=== PATIENT | female | born 1995 | race Caucasian/White ===

== ENCOUNTER 2016-11-26 10:22 | Emergency (ER) | payer OTHER ==
[~2016-11-26] VITALS: Ht 162.6 cm; Wt 62.6 kg
[~2016-11-26 10:22] MED LIST: AMOX875T PO; AZIT250T PO; BENZ100C PO; BENZ200C39 PO; CYCL10TA2 PO; FLUT12AE IH; HYDR-971 PO; IBUP-1007 PO; IBUP-1060 PO; PRED20TA PO; PROAIR HFA8.5 GM IH; SULF1TAB24 PO; ZOLP10TA PO; ZOLP5TAB PO
[2016-11-26 10:30] VITALS: BP 105/67
--- NOTE | 2016-11-26 11:29 | RAD ---
2 view CXR: Clinical indications: Shortness of breath with cough. Chest pain and mid upper back pain for 3 days. Comparison: November 09, 2012.. Findings: No acute lung infiltrate or pleural effusion or pulmonary edema or lung mass or pneumothorax is seen. The heart size, pulmonary vasculature, mediastinum and both saeed are unremarkable. The osseous structures appear intact. Impression: No acute radiographic abnormality is seen.
--- NOTE | 2016-11-26 11:33 | PHYS DOC ---
Past Medical History Past Medical History: Other Additional Past Medical Histor: crohn's Past Surgical History: Cholecystectomy, Tonsillectomy, Other Additional Past Surgical Histo: small bowel resection Smoking: Less than 1pk/day Alcohol Use: None Drug Use: None Adult General Chief Complaint Chief Complaint: COUGH HPI HPI Patient is a 21 year old female with history of Crohn's disease who presents with productive cough and shortness of breath for 3 days. She also has nasal congestion and sore throat. She denies fever or ear pain. She is currently taking prednisone, 40 mg daily for the last week, for a Crohn's flare. She also receives Remicade injections, her last injection was 2 weeks ago. Her PCP is Esthela Herrera. Her GI doctor is Dr. Eric. Review of Systems Review of Systems Constitutional: Denies fever or chills. [] Eyes: Denies change in visual acuity, redness, or eye pain. [] HENT: Denies ear pain. Reports nasal congestion and sore throat. Respiratory: Reports productive cough and shortness of breath. Cardiovascular: Denies chest pain, palpitations or edema. [] Musculoskeletal: Denies joint pain. Reports mid thoracic back pain. Integument: Denies rash or skin lesions. [] Neurologic: Denies headache, focal weakness or sensory changes. [] All systems reviewed and negative unless otherwise stated in the HPI. Allergies Allergies Allergies Coded Allergies Type Severity Reaction Last Updated Verified adhesive Allergy Severe "Really bad rash" 10/02/13 Yes Uncoded Allergies Type Severity Reaction Last Updated Verified SEROTONIN Allergy Severe "Shaking whole body" 10/02/13 Physical Exam Physical Exam Constitutional: Well developed, well nourished, no acute distress, non-toxic appearance. [] HENT: Normocephalic, atraumatic, bilateral external ears normal, oropharynx moist, no oral exudates, nose normal. Bilateral TMs without erythema or bulging. There is no posterior pharyngeal erythema or tonsillar edema. Bilateral nasal turbinates are swollen and erythematous with purulent drainage. Eyes: PERRLA, EOMI, conjunctiva normal, no discharge. [] Neck: Normal range of motion, no tenderness, supple, no stridor. [] Cardiovascular: Heart rate regular rhythm, no murmur [] Lungs & Thorax: Bilateral breath sounds clear to auscultation without wheezes, rales, or rhonchi. Skin: Warm, dry, no erythema, no rash. [] Back: No midline tenderness, no CVA tenderness. [] Neurologic: Alert and oriented X 3, normal motor function, normal sensory function, no focal deficits noted. [] Psychologic: Affect normal, judgement normal, mood normal. [] Current Patient Data Vital Signs Vital Signs Date Time Temp Pulse Resp B/P Pulse Ox O2 Delivery O2 Flow Rate FiO2 11/26/16 10:30 97.6 74 18 100 Room Air 97.6 EKG EKG [] Radiology/Procedures Radiology/Procedures REASON: cough, soa PROCEDURE: CHEST PA & LATERAL 2 view CXR: Clinical indications: Shortness of breath with cough. Chest pain and mid upper back pain for 3 days. Comparison: November 09, 2012.. Findings: No acute lung infiltrate or pleural effusion or pulmonary edema or lung mass or pneumothorax is seen. The heart size, pulmonary vasculature, mediastinum and both saeed are unremarkable. The osseous structures appear intact. Impression: No acute radiographic abnormality is seen. Course & Med Decision Making Course & Med Decision Making Pertinent Labs and Imaging studies reviewed. (See chart for details) [] Dragon Disclaimer Dragon Disclaimer This electronic medical record was generated, in whole or in part, using a voice recognition dictation system. Departure Departure Impression: Primary Impression: Bronchitis Disposition: 01 HOME, SELF-CARE Condition: STABLE Referrals: ESTHELA HERRERA (PCP) Patient Instructions: Acute Bronchitis, [id number] Additional Instructions: Your chest x-ray does not show any signs of pneumonia today. Please take the prescribed medication as instructed. Please continue to take your home prednisone as directed. Please follow-up with your primary care provider if your symptoms continue. Return to emergency department if you have any new or concerning symptoms. Scripts Benzonatate 200 Mg Capsule1 Cap PO TID #30 CAP Prov:LORRAINE GILBERT 11/26/16 Albuterol Sulfate (Proair Hfa Inhaler)8.5 Gm Hfa.aer.ad1 Puff INH Q4HRS PRN SHORTNESS OF BREATH #1 INHALER Prov:LORRAINE GILBERT 11/26/16 LORRAINE GILBERT Nov 26, 2016 11:33
[2016-11-26] MEDS ORDERED: BENZ200C39 PO (11:46)
[2016-11-26] MEDS ORDERED: PROAIR HFA8.5 GM INH (11:46)
== END 2016-11-26 11:52 | disposition home or self-care (01) ==
LOC: ER 10:22
DX: J40 Bronchitis, not specified as acute or chronic (principal); F17.200 Nicotine dependence, unspecified, uncomplicated; Z90.49 Acquired absence of other specified parts of digestive tract; Z88.8 Allergy status to other drugs, medicaments and biological substances; Z91.048 Other nonmedicinal substance allergy status
CPT/HCPCS: 71020; 99284

== ENCOUNTER 2017-05-07 09:58 | Emergency (ER) | payer OTHER ==
[~2017-05-07] VITALS: Ht 162.6 cm; Wt 69.4 kg
[~2017-05-07 09:58] MED LIST changes: -BENZ200C39 PO; +BENZ200C47 PO; +PROAIR HFA8.5 GM INH
[2017-05-07] MEDS ORDERED: ACETAMINOPHEN 325 MG TABLET. PO ONE (10:30)
[2017-05-07 10:42] LABS: NEGATIVE OBC STREP NEG; POSITIVE OBC STREP POS
--- NOTE | 2017-05-07 10:44 | PHYS DOC ---
Past Medical History Past Medical History: Other Additional Past Medical Histor: crohn's Past Surgical History: Cholecystectomy, Tonsillectomy, Other Additional Past Surgical Histo: small bowel resection Alcohol Use: None Drug Use: None Adult General Chief Complaint Chief Complaint: SORE THROAT HPI HPI Patient is a 22 year old female who presents with sore throat since last night. Pain with swallowing and laying down. No known sick contacts, no fever , no runny nose, no cough. Pt did not take any pain meds. 22 weeks , denies complications. Review of Systems Review of Systems Constitutional: Denies fever or chills [] Eyes: Denies change in visual acuity, redness, or eye pain [] HENT: Denies nasal congestion Respiratory: Denies cough or shortness of breath [] Cardiovascular: denies chest pain GI: Denies abdominal pain, nausea, vomiting, bloody stools or diarrhea [] : Denies dysuria or hematuria [] Musculoskeletal: Denies back pain or joint pain [] Integument: Denies rash or skin lesions [] Neurologic: Denies headache, focal weakness or sensory changes [] Current Medications Current Medications Current Medications Medications (Trade) Dose Ordered Sig/Pierre Start Time Stop Time Status Last Admin Dose Admin Acetaminophen (Tylenol) 650 mg 1X ONCE 05/07/17 10:30 05/07/17 10:31 DC 05/07/17 10:22 650 MG Allergies Allergies Allergies Coded Allergies Type Severity Reaction Last Updated Verified adhesive Allergy Severe "Really bad rash" 10/02/13 Yes Uncoded Allergies Type Severity Reaction Last Updated Verified SEROTONIN Allergy Severe "Shaking whole body" 10/02/13 Physical Exam Physical Exam Constitutional: Well developed, well nourished, no acute distress, non-toxic appearance. [] HENT: Normocephalic, atraumatic, bilateral external ears normal, oropharynx moist, erythema of oralpharynx, absent tonsils, no signs of abscess, uvula rises midline Eyes: conjunctiva normal, no discharge. [] Neck: Normal range of motion, no tenderness, supple, no stridor. [] Cardiovascular:Heart rate regular rhythm, no murmur [] Lungs & Thorax: Bilateral breath sounds clear to auscultation [] Neurologic: Alert and oriented X 3, normal motor function, normal sensory function, no focal deficits noted. [] Psychologic: Affect normal, judgement normal, mood normal. [] Current Patient Data Vital Signs Vital Signs Date Time Temp Pulse Resp B/P (MAP) Pulse Ox O2 Delivery O2 Flow Rate FiO2 05/07/17 10:06 97.6 97 18 98 Room Air 97.6 EKG EKG [] Radiology/Procedures Radiology/Procedures [] Course & Med Decision Making Course & Med Decision Making Pertinent Labs and Imaging studies reviewed. (See chart for details) Rapid strep test negative. Pt dc'd with recs to take Tylenol, drink fluids and f/u with OB doc. Return precautions given. Dragon Disclaimer Dragon Disclaimer This electronic medical record was generated, in whole or in part, using a voice recognition dictation system. Departure Departure Impression: Primary Impression: Pharyngitis Disposition: 01 HOME, SELF-CARE Admitting Physician: Other Condition: STABLE Referrals: ESTHELA HERRERA (PCP) Patient Instructions: Viral Pharyngitis CECY MARTINEZ MD May 07, 2017 10:44
== END 2017-05-07 10:50 | disposition home or self-care (01) ==
LOC: ER 09:58
DX: O99.512 Diseases of the respiratory system complicating pregnancy, second trimester (principal); J02.9 Acute pharyngitis, unspecified; Z88.8 Allergy status to other drugs, medicaments and biological substances; Z91.048 Other nonmedicinal substance allergy status; Z3A.22 22 weeks gestation of pregnancy; Z90.49 Acquired absence of other specified parts of digestive tract
CPT/HCPCS: 87070; 87880; 99283

== ENCOUNTER 2018-09-30 11:36 | Emergency (ER) | payer OTHER ==
[~2018-09-30] VITALS: Ht 162.6 cm; Wt 68.5 kg
[~2018-09-30 11:36] MED LIST changes: +HYDR-3164 PO; -HYDR-971 PO
[2018-09-30 11:59] VITALS: BP 109/68
[2018-09-30] MEDS ORDERED: AZIT1PAC9 PO (12:20)
[2018-09-30] MEDS ORDERED: PROAIR HFA8.5 GM INH (12:20)
--- NOTE | 2018-09-30 12:20 | PHYS DOC ---
Past Medical History Past Medical History: Asthma, Other Additional Past Medical Histor: crohns Past Surgical History: Cholecystectomy, Tonsillectomy, Other Additional Past Surgical Histo: bowel resection Alcohol Use: None Drug Use: None Adult General Chief Complaint Chief Complaint: FLU SYMPTOM HPI HPI Patient is a 23 year old [f__sex] who presents with [] Review of Systems Review of Systems Constitutional: Denies fever or chills [] Eyes: Denies change in visual acuity, redness, or eye pain [] HENT: Denies nasal congestion or sore throat [] Respiratory: Denies cough or shortness of breath [] Cardiovascular: No additional information not addressed in HPI [] GI: Denies abdominal pain, nausea, vomiting, bloody stools or diarrhea [] : Denies dysuria or hematuria [] Musculoskeletal: Denies back pain or joint pain [] Integument: Denies rash or skin lesions [] Neurologic: Denies headache, focal weakness or sensory changes [] Endocrine: Denies polyuria or polydipsia [] All other systems were reviewed and found to be within normal limits, except as documented in this note. Allergies Allergies Allergies Coded Allergies Type Severity Reaction Last Updated Verified adhesive Allergy Severe "Really bad rash" 10/02/13 Yes Uncoded Allergies Type Severity Reaction Last Updated Verified SEROTONIN Allergy Severe "Shaking whole body" 10/02/13 Physical Exam Physical Exam Constitutional: Well developed, well nourished, no acute distress, non-toxic appearance. [] HENT: Normocephalic, atraumatic, bilateral external ears normal, oropharynx moist, no oral exudates, nose normal. [] Eyes: PERRLA, EOMI, conjunctiva normal, no discharge. [] Neck: Normal range of motion, no tenderness, supple, no stridor. [] Cardiovascular:Heart rate regular rhythm, no murmur [] Lungs & Thorax: Bilateral breath sounds clear to auscultation [] Abdomen: Bowel sounds normal, soft, no tenderness, no masses, no pulsatile masses. [] Skin: Warm, dry, no erythema, no rash. [] Back: No tenderness, no CVA tenderness. [] Extremities: No tenderness, no cyanosis, no clubbing, ROM intact, no edema. [] Neurologic: Alert and oriented X 3, normal motor function, normal sensory function, no focal deficits noted. [] Psychologic: Affect normal, judgement normal, mood normal. [] Current Patient Data Vital Signs Vital Signs Date Time Temp Pulse Resp B/P (MAP) Pulse Ox O2 Delivery O2 Flow Rate FiO2 09/30/18 11:59 97.9 95 16 109/68 (82) 99 Room Air 97.9 EKG EKG [] Radiology/Procedures Radiology/Procedures [] Course & Med Decision Making Course & Med Decision Making Pertinent Labs and Imaging studies reviewed. (See chart for details) [] Dragon Disclaimer Dragon Disclaimer This electronic medical record was generated, in whole or in part, using a voice recognition dictation system. Departure Departure Impression: Primary Impression: Bronchitis Additional Impression: Upper respiratory infection Disposition: HOME, SELF-CARE Condition: STABLE Referrals: ESTHELA HERRERA (PCP) Patient Instructions: Acute Bronchitis, [id number], Upper Respiratory Infection, Adult, [id number] Additional Instructions: Fill prescription(s) and use as directed. Recommend that you use a Cool mist humidifier in room at bedtime. Tylenol or ibuprofen prn pain/fever. Increase clear fluids. Avoid triggers such as smoke, fragrance, dust, and pollen. May take OTC cough suppressants as needed. Follow-up with your primary care doctor symptoms persist, return to the ER if symptoms worsen. Scripts Albuterol Sulfate (PROAIR HFA INHALER) 8.5 Gm Hfa.aer.ad 2 PUFF INH PRN Q4-6HRS PRN for SHORTNESS OF BREATH for 30 Days, #1 INHALER 1 Refill Prov: SONY MORA TELEPHONIC RN 09/30/18 Azithromycin (AZITHROMYCIN PACKET) 1 Gm Packet 1 PACKET PO ONCE, #1 PACKET Prov: SONY MORA TELEPHONIC RN 09/30/18 Problem Qualifiers Additional Impression: Upper respiratory infection URI type: unspecified URI Qualified Codes: J06.9 - Acute upper respiratory infection, unspecified SONY MORA TELEPHONIC RN Sep 30, 2018 12:20
== END 2018-09-30 12:39 | disposition home or self-care (01) ==
LOC: ER 11:36
DX: J40 Bronchitis, not specified as acute or chronic (principal); J02.9 Acute pharyngitis, unspecified; J45.909 Unspecified asthma, uncomplicated; K50.90 Crohn's disease, unspecified, without complications; Z88.8 Allergy status to other drugs, medicaments and biological substances
CPT/HCPCS: 99283

== ENCOUNTER 2018-11-23 20:28 | Emergency (ER) | payer OTHER ==
[~2018-11-23] VITALS: Ht 162.6 cm; Wt 69.4 kg
[~2018-11-23 20:28] MED LIST changes: +ALBU2.5V8 IH; +ALBU2.5V8 INH; +AZIT1PAC9 PO; -PROAIR HFA8.5 GM IH; -PROAIR HFA8.5 GM INH
[2018-11-23 20:45] VITALS: BP 106/61
[2018-11-23] MEDS ORDERED: IV NORMAL SALINE 1000ML BAG 1,000 ML IV ONE (21:30)
--- NOTE | 2018-11-23 21:36 | PHYS DOC ---
Past Medical History Past Medical History: Asthma, Other Additional Past Medical Histor: crohns (PEDRO SHAIKH APRN) Past Surgical History: Cholecystectomy, Tonsillectomy, Other Additional Past Surgical Histo: bowel resection (PEDRO SHAIKH APRN) Alcohol Use: None Drug Use: None (PEDRO SHAIKH APRN) Adult General Chief Complaint Chief Complaint: Influenza HPI HPI 23-year-old female presents to ER via POV with complaints of flu illness which is been ongoing since Thursday. Patient went to [facility] yesterday and tested positive for flu however is outside 48 hr window on tx. She reports her mom also was tested and was positive for influenza B as well. Patient reports she is 10 weeks with due date 06/20/19. Patient reports she is 3 para 2 LMP 09/13/18. Patient denies vaginal bleeding, abdominal pain, or lower back pain. Patient reports she's had nonproductive cough, runny nose, and N/V/ D. patient reports she has had generalized fatigue denies lethargy. Patient denies urinary symptoms. Patient denies fever/lethargy. She reports with intermittent N/V appetite has been less with less fld intake. She denies bloody stools. (PEDRO SHAIKH APRN) Review of Systems Review of Systems Constitutional: Denies fever or chills [] Eyes: Denies redness, or eye pain [] HENT: Reports sinus congestion/drainage and sore throat Respiratory: Denies shortness of breath [] Cardiovascular: No additional information not addressed in HPI [] GI: Denies abdominal pain or bloody stools. Reports N/V/D : Denies dysuria or hematuria, Denies vaginal bleeding or pelvic pressure Musculoskeletal: Denies back pain or joint pain [] Integument: Denies rash, swelling or skin lesions [] Neurologic: Denies headache, focal weakness or sensory changes. Denies dizziness Endocrine: Denies polyuria or polydipsia [] All other systems were reviewed and found to be within normal limits, except as documented in this note. (PEDRO SHAIKH APRN) Current Medications Current Medications Current Medications Medications (Trade) Dose Ordered Sig/Pierre Start Time Stop Time Status Last Admin Dose Admin Cephalexin HCl (Keflex) 500 mg 1X ONCE 11/23/18 23:00 11/23/18 23:01 DC 11/23/18 23:00 500 MG Metoclopramide HCl (Reglan Vial) 10 mg 1X ONCE 11/23/18 22:00 11/23/18 22:01 DC 11/23/18 22:31 10 MG Sodium Chloride 1,000 ml @ 1,000 mls/hr 1X ONCE 11/23/18 21:30 11/23/18 22:29 DC 11/23/18 21:30 1,000 MLS/HR (MADELINE MICHAELS DO) Allergies Allergies Allergies Coded Allergies Type Severity Reaction Last Updated Verified adhesive Allergy Severe "Really bad rash" 10/02/13 Yes Uncoded Allergies Type Severity Reaction Last Updated Verified SEROTONIN Allergy Severe "Shaking whole body" 10/02/13 (MADELINE MICHAELS DO) Physical Exam Physical Exam Constitutional: Well developed, well nourished, no acute distress, non-toxic appearance. [] HENT: Normocephalic, atraumatic, bilat. ear exam with erythema at TM without bulging/perforation- no purulent drainage; oropharynx moist, pharyngeal erythema without exudate/swelling- uvula midline; nose normal. [] Eyes: Pupils equal, conjunctiva normal, no discharge. [] Neck: Normal range of motion, no tenderness, supple, no stridor/gross adenopathy Cardiovascular: Heart rate regular rhythm, no murmur [] Lungs & Thorax: Bilateral breath sounds clear to auscultation. Resp. equal/ nonlabored Abdomen: Bowel sounds normal, soft- no distention/rigidity, no tenderness Skin: Warm, dry, no erythema, no rash. [] Back: No tenderness, no CVA tenderness. [] Extremities: No tenderness, no cyanosis, no clubbing, ROM intact, no edema. [] Neurologic: Alert and oriented X 3, normal motor function, normal sensory function, no focal deficits noted. [] Psychologic: Affect normal, judgement normal, mood normal. [] (REFFITT,PEDRO Oneil APRN) Current Patient Data Vital Signs Vital Signs Date Time Temp Pulse Resp B/P (MAP) Pulse Ox O2 Delivery O2 Flow Rate FiO2 11/23/18 20:45 97.7 84 18 106/61 (76) 96 Room Air 97.7 (MICHAELS,MADELINE R DO) Lab Values Laboratory Tests Test 11/23/18 20:00 11/23/18 21:00 11/23/18 22:05 Urine Collection Type Unknown Urine Color Yellow Urine Clarity Clear Urine pH 6.0 Urine Specific Grahn >=1.030 Urine Protein Negative mg/dL (NEG-TRACE) Urine Glucose (UA) Negative mg/dL (NEG) Urine Ketones (Stick) Negative mg/dL (NEG) Urine Blood Negative (NEG) Urine Nitrite Negative (NEG) Urine Bilirubin Negative (NEG) Urine Urobilinogen Dipstick 1.0 mg/dL (0.2 mg/dL) Urine Leukocyte Esterase Moderate (NEG) Urine RBC 1-2 /HPF (0-2) Urine WBC 20-40 /HPF (0-4) Urine Squamous Epithelial Cells Mod /LPF Urine Bacteria Moderate /HPF (0-FEW) Urine Mucus Mod /LPF POC Urine HCG, Qualitative Hcg positive (Negative) White Blood Count 10.1 x10^3/uL (4.0-11.0) Red Blood Count 4.77 x10^6/uL (3.50-5.40) Hemoglobin 14.1 g/dL (12.0-15.5) Hematocrit 41.7 % (36.0-47.0) Mean Corpuscular Volume 88 fL (79-100) Mean Corpuscular Hemoglobin 30 pg (25-35) Mean Corpuscular Hemoglobin Concent 34 g/dL (31-37) Red Cell Distribution Width 13.4 % (11.5-14.5) Platelet Count 183 x10^3/uL (140-400) Neutrophils (%) (Auto) 63 % (31-73) Lymphocytes (%) (Auto) 25 % (24-48) Monocytes (%) (Auto) 9 % (0-9) Eosinophils (%) (Auto) 2 % (0-3) Basophils (%) (Auto) 1 % (0-3) Neutrophils # (Auto) 6.4 x10^3uL (1.8-7.7) Lymphocytes # (Auto) 2.6 x10^3/uL (1.0-4.8) Monocytes # (Auto) 0.9 x10^3/uL (0.0-1.1) Eosinophils # (Auto) 0.2 x10^3/uL (0.0-0.7) Basophils # (Auto) 0.1 x10^3/uL (0.0-0.2) Sodium Level 135 mmol/L (136-145) L Potassium Level 3.7 mmol/L (3.5-5.1) Chloride Level 101 mmol/L (98-107) Carbon Dioxide Level 27 mmol/L (21-32) Anion Gap 7 (6-14) Blood Urea Nitrogen 11 mg/dL (7-20) Creatinine 0.5 mg/dL (0.6-1.0) L Estimated GFR (Cockcroft-Gault) 151.6 BUN/Creatinine Ratio 22 (6-20) H Glucose Level 96 mg/dL (70-99) Calcium Level 9.6 mg/dL (8.5-10.1) Total Bilirubin 0.3 mg/dL (0.2-1.0) Aspartate Amino Transferase (AST) 21 U/L (15-37) Alanine Aminotransferase (ALT) 30 U/L (14-59) Alkaline Phosphatase 76 U/L (46-116) Total Protein 7.9 g/dL (6.4-8.2) Albumin 3.5 g/dL (3.4-5.0) Albumin/Globulin Ratio 0.8 (1.0-1.7) L Laboratory Tests 11/23/18 22:05 Laboratory Tests 11/23/18 22:05 Microbiology 11/23/18 Urine Culture - Final, Complete 11/23/18 Urine Culture Result 1 (CONTRERAS) - Final, Complete (MADELINE MICHAELS DO) EKG EKG [] (PEDRO SHAIKH APRN) Radiology/Procedures Radiology/Procedures [] (PEDRO SHAIKH APRN) Course & Med Decision Making Course & Med Decision Making Pertinent Labs and Imaging studies reviewed. (See chart for details) 2245: Pt reports with IV flds/dose of Reglan she is feeling much better. Patient is nontoxic in appearance at this time and continues to deny any abdominal or back pain. Patient has had no active vomiting while in the ER and denies any diarrhea episodes. Discussed test results with WBCs NL at 10.1 no lt shift; CMP with NL LFTs; UA neg. blood/ketones/protein moderate leuks- micro with 20-40s WBCs. Discussion had with patient as she tested positive for flu B yesterday at [facility]. Patient reported her symptoms had started on Thursday so discussed she was outside the 48-hour window for treatment to start with Tamiflu. Discussed with UTI would be started on Keflex with dose being provided while in the ER. Will provide patient with Rx for Zofran ODT. Patient encouraged to call her BROADCAST DESIGNER and discuss medications and ER visit. Patient states she has appointment scheduled next week but will call office tomorrow to discuss her symptoms and treatment received. At this time patient is in no visible distress remains nontoxic in appearance. Education provided on signs and symptoms to return to ER for an discharge instructions were discussed. Pt comfortable with home discharge plan as discussed. (PEDRO SHAIKH APRN) Dragon Disclaimer Dragon Disclaimer This electronic medical record was generated, in whole or in part, using a voice recognition dictation system. (PEDRO SHAIKH APRN) Departure Departure Impression: Primary Impression: UTI (lower urinary tract infection) Additional Impression: Influenza Referrals: ESTHELA HERRERA (PCP) Patient Instructions: Influenza, Adult, - Urinary Tract Infection Additional Instructions: Drink plenty of water. Call and discuss your Emergency Department visit with your BROADCAST DESIGNER doctor. Tylenol as directed on container for pain/fever as needed. Scripts Ondansetron (ONDANSETRON ODT) 4 Mg Tab.rapdis 1 TAB PO PRN Q6-8HRS PRN for NAUSEA, #8 TAB 0 Refills Prov: PEDRO SHAIKH APRN 11/23/18 Cephalexin (KEFLEX) 500 Mg Capsule 1 CAP PO BID, #14 CAP 0 Refills Prov: PEDRO SHAIKH APRN 11/23/18 Attending Signature Attending Signature I have reviewed the PA/STICK FEEDER's note and plan of care. I was available for consultation as needed during the patient's visit in the emergency department. I agree with the clinical impression, plan, and disposition. (MADELINE MICHAELS DO) Problem Qualifiers PEDRO SHAIKH APRN Nov 23, 2018 21:36 MADELINE MICHAELS DO Dec 13, 2018 15:32
[2018-11-23 21:45] LABS: BILIRUBIN,URINE NEGATIVE (NEG); CLARITY,URINE CLEAR; COLOR,URINE YELLOW; NITRITE,URINE NEGATIVE (NEG); PROTEIN,URINE NEGATIVE (NEG-TRACE)
[2018-11-23 21:54] LABS: BACTERIA,URINE MODERATE /HPF (0-FEW); SQUAMOUS EPITHELIAL CELL,UR MOD /LPF; WBC,URINE 20-40 /HPF (0-4)
[2018-11-23] MEDS ORDERED: METOCLOPRAMIDE HCL 10 MG/2 ML VIAL. IV ONE (22:00)
[2018-11-23 22:30] LABS: CALCIUM 9.6 mg/dL (8.5-10.1); CREATININE 0.5 mg/dL (0.6-1.0); GFR 151.6; POTASSIUM 3.7 mmol/L (3.5-5.1)
[2018-11-23 22:35] LABS: BASO # 0.1 x10^3/uL (0.0-0.2); BASO % 1 % (0-3); EOS # 0.2 x10^3/uL (0.0-0.7); EOS % 2 % (0-3); HEMATOCRIT 41.7 % (36.0-47.0); HEMOGLOBIN 14.1 g/dL (12.0-15.5); LYMPH # 2.6 x10^3/uL (1.0-4.8); LYMPH % 25 % (24-48); MEAN CORPUSCULAR HEMOGLOBIN 30 pg (25-35); MEAN CORPUSCULAR HGB CONC 34 g/dL (31-37); MEAN CORPUSCULAR VOLUME 88 fL (79-100); MONO # 0.9 x10^3/uL (0.0-1.1); MONO % 9 % (0-9); NEUT # 6.4 x10^3uL (1.8-7.7); NEUT % 63 % (31-73); PLATELET COUNT 183 x10^3/uL (140-400); RED BLOOD COUNT 4.77 x10^6/uL (3.50-5.40); RED CELL DISTRIBUTION WIDTH 13.4 % (11.5-14.5); WHITE BLOOD COUNT 10.1 x10^3/uL (4.0-11.0)
[2018-11-23 22:38] LABS: ALBUMIN 3.5 g/dL (3.4-5.0); ALBUMIN/GLOBULIN RATIO 0.8 (1.0-1.7); TOTAL BILIRUBIN 0.3 mg/dL (0.2-1.0); TOTAL PROTEIN 7.9 g/dL (6.4-8.2)
[2018-11-23] MEDS ORDERED: CEPHALEXIN 250 MG CAPSULE. PO ONE (23:00)
[2018-11-23] MEDS ORDERED: ONDA4TAB12 PO (23:04)
[2018-11-23] MEDS ORDERED: CEPH-264 PO (23:04)
== END 2018-11-23 23:18 | disposition home or self-care (01) ==
LOC: ER 20:28
DX: O23.41 Unspecified infection of urinary tract in pregnancy, first trimester (principal); Z3A.10 10 weeks gestation of pregnancy; J10.1 Influenza due to other identified influenza virus with other respiratory manifestations; O21.9 Vomiting of pregnancy, unspecified; O99.511 Diseases of the respiratory system complicating pregnancy, first trimester; J45.909 Unspecified asthma, uncomplicated; Z90.49 Acquired absence of other specified parts of digestive tract; Z88.8 Allergy status to other drugs, medicaments and biological substances
CPT/HCPCS: 36415; 80053; 81001; 81025; 85025; 87086; 96374; 99283; J2765; J7030

== ENCOUNTER 2019-12-09 09:44 | Emergency (ER) | payer OTHER ==
[~2019-12-09] VITALS: Ht 162.6 cm; Wt 68.1 kg
[~2019-12-09 09:44] MED LIST changes: +CEPH-264 PO; +ONDA4TAB12 PO
[2019-12-09 09:59] VITALS: BP 129/81
--- NOTE | 2019-12-09 10:18 | PHYS DOC ---
Past Medical History Past Medical History: Asthma, Other Additional Past Medical Histor: crohns, HPV Past Surgical History: Cholecystectomy, Tonsillectomy, Other Additional Past Surgical Histo: bowel resection Smoking Status: Light Tobacco Smoker Alcohol Use: None Drug Use: None Adult General Chief Complaint Chief Complaint: FLU SYMPTOM HPI HPI Patient is a 24 year old female presenting to the ED today for sore throat and sneezing and subjective fevers, symptoms began 3 days ago. 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 Review of Systems Review of Systems Constitutional: Reports fever Eyes: Denies change in visual acuity, redness, or eye pain [] HENT: Reports sore throat. Denies nasal congestion Respiratory: Denies cough or shortness of breath [] Cardiovascular: No additional information not addressed in HPI [] GI: Denies abdominal pain, nausea, vomiting, bloody stools or diarrhea [] : Denies dysuria or hematuria [] Musculoskeletal: Denies back pain or joint pain [] Integument: Denies rash or skin lesions [] Neurologic: Denies headache, focal weakness or sensory changes [] All other systems were reviewed and found to be within normal limits, except as documented in this note. Allergies Allergies Allergies Coded Allergies Type Severity Reaction Last Updated Verified adhesive Allergy Severe "Really bad rash" 10/02/13 Yes Uncoded Allergies Type Severity Reaction Last Updated Verified SEROTONIN Allergy Severe "Shaking whole body" 10/02/13 Physical Exam Physical Exam Constitutional: Well developed, well nourished, no acute distress, non-toxic appearance. [] HENT: Normocephalic, atraumatic, bilateral external ears normal, oropharynx moist, no oral exudates, nose normal. [] Eyes: PERRLA, EOMI, conjunctiva normal, no discharge. [] Neck: Normal range of motion, no tenderness, supple, no stridor. [] Cardiovascular:Heart rate regular rhythm, no murmur [] Lungs & Thorax: Bilateral breath sounds clear to auscultation [] Abdomen: Bowel sounds normal, soft, no tenderness, no masses, no pulsatile masses. [] Skin: Warm, dry, no erythema, no rash. [] Back: No tenderness, no CVA tenderness. [] Extremities: No tenderness, no cyanosis, no clubbing, ROM intact, no edema. [] Neurologic: Alert and oriented X 3, normal motor function, normal sensory function, no focal deficits noted. [] Psychologic: Affect normal, judgement normal, mood normal. [] Current Patient Data Vital Signs Vital Signs Date Time Temp Pulse Resp B/P (MAP) Pulse Ox O2 Delivery O2 Flow Rate FiO2 12/09/19 09:59 97.6 87 18 129/81 (97) 100 Room Air 97.6 Lab Values Laboratory Tests Test 12/09/19 10:05 Influenza Type A Antigen Negative (NEGATIVE) Influenza Type B Antigen Negative (NEGATIVE) EKG EKG [] Radiology/Procedures Radiology/Procedures [] Course & Med Decision Making Course & Med Decision Making Pertinent Labs and Imaging studies reviewed. (See chart for details) This is a 24-year-old female patient presenting to the ED today with flulike symptoms and requesting to be tested. Patient works in a company where several members of influenza A. Patient received influenza vaccine this season. Negative influenza A or B. Supportive care measures recommended. Dragon Disclaimer Dragon Disclaimer This electronic medical record was generated, in whole or in part, using a voice recognition dictation system. Departure Departure Impression: Primary Impression: Fever Additional Impression: Pharyngitis, acute Disposition: HOME, SELF-CARE Condition: STABLE Referrals: ESTHELA HERRERA (PCP) follow up in 1-2 weeks Patient Instructions: Fever, Adult, [id number], Viral Pharyngitis Additional Instructions: You were elevated in the emergency room, your influenza test is negative. We r ecommend Tylenol/Motrin for pain or fever, resting, push fluids, saltwater gargles for sore throat. We put you on prednisone which will help with some of the symptoms. Please follow-up with your doctor in 1-2 weeks. Scripts Prednisone (PREDNISONE) 50 Mg Tablet 1 TAB PO DAILY, #5 TAB Prov: MARIXA MCKEON [employer] 12/09/19 Problem Qualifiers Primary Impression: Fever Fever type: unspecified Qualified Codes: R50.9 - Fever, unspecified Additional Impression: Pharyngitis, acute Pharyngitis/tonsillitis etiology: unspecified etiology Qualified Codes: J02.9 - Acute pharyngitis, unspecified MARIXA MCKEON [employer] Dec 09, 2019 10:18
[2019-12-09 11:06] LABS: INFLUENZA A PATIENT NEGATIVE (NEGATIVE); INFLUENZA B PATIENT NEGATIVE (NEGATIVE)
[2019-12-09] MEDS ORDERED: PRED50TA PO (11:13)
== END 2019-12-09 11:39 | disposition home or self-care (01) ==
LOC: ER 09:44
DX: J02.9 Acute pharyngitis, unspecified (principal); R50.9 Fever, unspecified; R06.7 Sneezing; J45.909 Unspecified asthma, uncomplicated; F17.290 Nicotine dependence, other tobacco product, uncomplicated; Z88.8 Allergy status to other drugs, medicaments and biological substances
CPT/HCPCS: 87804; 99283